=== PATIENT | male | born 1990 | race Caucasian/White ===

== ENCOUNTER 2019-01-19 06:58 | Emergency (ER) | payer BC, SELFPAY ==
[2019-01-19] MEDS ORDERED: ONDANSETRON 4 MG/2 ML VIAL ONE (07:28)
[2019-01-19] MEDS ORDERED: NA CHLORIDE 0.9% 1,000 ML ONE (07:29)
[2019-01-19 07:43] LABS: Absolute Lymphocytes (CBC) 0.2 K/uL (0.7-4.9); Absolute Monocytes 0.3 K/uL (0.1-1.3); Absolute Neutrophil 5.9 K/uL (1.8-8.0); Basophils % 0.1 % (0-1.3); Eosinophils % 0.3 % (0-4.4); Hematocrit 48.8 % (39.6-49.0); Lymphocytes % 3.4 % (15.3-44.8); Monocytes % 4.2 % (3.3-12.3); RBC Red Blood Cell Count 5.45 M/uL (4.33-5.43)
[2019-01-19 07:53] LABS: ALT/SGPT 44 U/L (12-78); AST/SGOT 24 U/L (15-37); Albumin 4.2 g/dL (3.4-5.0); Alkaline Phosphatase 71 U/L (45-117); BUN Blood Urea Nitrogen 17 mg/dL (7-18); Bicarbonate 28 mmol/L (21-32); Bilirubin Direct 0.2 mg/dL (0-0.2); Bilirubin Total 0.7 mg/dL (0.2-1.0); Glucose Level 120 mg/dL (74-106); Lipase 126 U/L (73-393); Potassium 3.6 mmol/L (3.5-5.1); Protein, Total 7.8 g/dL (6.4-8.2); Sodium Level 142 mmol/L (136-145)
--- NOTE | 2019-01-19 08:33 | EDPHYS ---
Physician Documentation [facility] Name: Larry Christensen Age: 28 yrs Sex: Male : 1990 Arrival Date: 01/19/2019 Time: 07:00 Bed 6 Private MD: ED Physician Joel Baugh HPI: 01/19 07:13 This 28 yrs old Male presents to ER via Ambulatory with complaints of kb Vomiting. 07:13 The patient presents to the emergency department with nausea, vomiting, diarrhea. kb Onset: The symptoms/episode began/occurred last night. Possible causes: bad food exposure, shrimp. The symptoms are aggravated by nothing. The symptoms are alleviated by nothing. Associated signs and symptoms: Pertinent positives: diarrhea, nausea, vomiting. Severity of symptoms: At their worst the symptoms were moderate in the emergency department the symptoms are unchanged. The patient has not experienced similar symptoms in the past. The patient has not recently seen a physician. 07:16 Pt reports vomiting started at 2000 last night and diarrhea started this morning. kb States he had shrimp prior to symptoms so he believes that is the cause. denies fever, abd pain, sick contacts. Historical: - Allergies: 07:07 No Known Allergies; aa5 - Home Meds: 07:07 None [Active]; aa5 - PMHx: 07:07 None; aa5 - PSHx: 07:07 None; aa5 - Immunization history:: Flu vaccine is up to date. - Social history:: Smoking status: Patient/guardian denies using tobacco. - Ebola Screening: : No symptoms or risks identified at this time. ROS: 07:13 Constitutional: Negative for fever, chills, and weight loss, Cardiovascular: Negative kb for chest pain, palpitations, and edema, Respiratory: Negative for shortness of breath, cough, wheezing, and pleuritic chest pain, Back: Negative for injury and pain, : Negative for injury, bleeding, discharge, and swelling, MS/Extremity: Negative for injury and deformity, Skin: Negative for injury, rash, and discoloration, Neuro: Negative for headache, weakness, numbness, tingling, and seizure. 07:13 Abdomen/GI: Positive for nausea, vomiting, and diarrhea, Negative for abdominal pain, abdominal cramps, abdominal distension, anorexia. Exam: 07:13 Constitutional: This is a well developed, well nourished patient who is awake, alert, kb and in no acute distress. Head/Face: Normocephalic, atraumatic. ENT: Nares patent. No nasal discharge, no septal abnormalities noted. Tympanic membranes are normal and external auditory canals are clear. Oropharynx with no redness, swelling, or masses, exudates, or evidence of obstruction, uvula midline. Mucous membranes moist. Neck: Trachea midline, no thyromegaly or masses palpated, and no cervical lymphadenopathy. Supple, full range of motion without nuchal rigidity, or vertebral point tenderness. No Meningismus. Chest/axilla: Normal chest wall appearance and motion. Nontender with no deformity. No lesions are appreciated. Cardiovascular: Regular rate and rhythm with a normal S1 and S2. No gallops, murmurs, or rubs. Normal PMI, no JVD. No pulse deficits. Respiratory: Lungs have equal breath sounds bilaterally, clear to auscultation and percussion. No rales, rhonchi or wheezes noted. No increased work of breathing, no retractions or nasal flaring. Abdomen/GI: Soft, non-tender, with normal bowel sounds. No distension or tympany. No guarding or rebound. No evidence of tenderness throughout. Back: No spinal tenderness. No costovertebral tenderness. Full range of motion. Skin: Warm, dry with normal turgor. Normal color with no rashes, no lesions, and no evidence of cellulitis. MS/ Extremity: Pulses equal, no cyanosis. Neurovascular intact. Full, normal range of motion. Neuro: Awake and alert, GCS 15, oriented to person, place, time, and situation. Cranial nerves II-XII grossly intact. Motor strength 5/5 in all extremities. Sensory grossly intact. Cerebellar exam normal. Normal gait. Vital Signs: 07:07 BP 109 / 61; Pulse 106; Resp 16 S; Temp 99.4(TE); Pulse Ox 95% on R/A; Weight 88.45 kg aa5 (R); Height 5 ft. 11 in. (180.34 cm) (R); Pain 0/10; 08:13 BP 107 / 59; Pulse 90; Resp 18; Pulse Ox 97% on R/A; hj 07:07 Body Mass Index 27.20 (88.45 kg, 180.34 cm) aa5 MDM: 07:08 Patient medically screened. [facility] 07:12 Data reviewed: vital signs, nurses notes. Data interpreted: Pulse oximetry: on room air kb is 95 %. Interpretation: normal. 08:11 Counseling: I had a detailed discussion with the patient and/or guardian regarding: the kb historical points, exam findings, and any diagnostic results supporting the discharge/admit diagnosis, lab results, the need for outpatient follow up, a family practitioner, to return to the emergency department if symptoms worsen or persist or if there are any questions or concerns that arise at home. 01/19 07:12 Order name: Basic Metabolic Panel; Complete Time: 07:53 kb 01/19 07:12 Order name: CBC with Diff kb 01/19 07:12 Order name: Hepatic Function; Complete Time: 07:53 kb 01/19 07:12 Order name: Lipase; Complete Time: 07:53 kb 01/19 07:12 Order name: IV Saline Lock; Complete Time: 07:24 kb 01/19 07:12 Order name: Labs collected and sent; Complete Time: 07:24 kb 01/19 08:09 Order name: PO challenge; Complete Time: 08:10 kb Administered Medications: 07:24 Drug: NS 0.9% 1000 ml Route: IV; Rate: 1000 ml; Site: right forearm; 07:58 Follow up: IV Status: Completed infusion hj 07:24 Drug: Zofran 4 mg Route: IVP; Site: right forearm; 07:58 Follow up: Response: No adverse reaction Disposition: 01/19/19 08:33 Discharged to Home. Impression: Noninfective gastroenteritis and colitis, unspecified. - Condition is Stable. - Discharge Instructions: Food Choices to Help Relieve Diarrhea, Adult, Viral Gastroenteritis, Adult, [id number]. - Prescriptions for Zofran 4 mg Oral Tablet - take 1 tablet by ORAL route every 6 hours As needed; 20 tablet. - Medication Reconciliation Form, Thank You Letter, Antibiotic Education, Prescription Opioid Use, Work release form form. - Follow up: Emergency Department; When: As needed; Reason: Worsening of condition. Follow up: Private Physician; When: 2 - 3 days; Reason: Recheck today's complaints, Continuance of care, Re-evaluation by your physician. Addendum: 01/21/2019 11:18 Co-signature as Attending Physician, Joel Baugh MD I agree with the assessment and c doyle plan of care. Signatures: Dispatcher [employer] EDMarva Garcia, JUNIOR MEDIA BUYER-C JUNIOR MEDIA BUYER-Ckb Joel Baugh MD MD cha Calderon, Audri, RN RN aa5 Tao Barriga, RN RN hj Corrections: (The following items were deleted from the chart) 01/19 08:51 08:33 01/19/2019 08:33 Discharged to Home. Impression: Noninfective gastroenteritis and hj colitis, unspecified. Condition is Stable. Discharge Instructions: Food Choices to Help Relieve Diarrhea, Adult, Viral Gastroenteritis, Adult, [id number]. Prescriptions for Zofran 4 mg Oral Tablet - take 1 tablet by ORAL route every 6 hours As needed; 20 tablet. and Forms are Medication Reconciliation Form, Thank You Letter, Antibiotic Education, Prescription Opioid Use. Follow up: Emergency Department; When: As needed; Reason: Worsening of condition. Follow up: Private Physician; When: 2 - 3 days; Reason: Recheck today's complaints, Continuance of care, Re-evaluation by your physician. kb
--- NOTE | 2019-01-19 08:33 | ER ---
Nurse's Notes [facility] Name: Larry Christensen Age: 28 yrs Sex: Male : 1990 Arrival Date: 01/19/2019 Time: 07:00 Bed 6 Private MD: Diagnosis: Noninfective gastroenteritis and colitis, unspecified Presentation: 01/19 07:06 Presenting complaint: Patient states: vomiting since last night around 1999 and aa5 diarrhea today. Pt reports abd "discomfort". Transition of care: patient was not received from another setting of care. Onset of symptoms was January 2019. Risk Assessment: Do you want to hurt yourself or someone else? Patient reports no desire to harm self or others. Initial Sepsis Screen: Does the patient meet any 2 criteria? No. Patient's initial sepsis screen is negative. Does the patient have a suspected source of infection? No. Patient's initial sepsis screen is negative. Care prior to arrival: None. 07:06 Method Of Arrival: Ambulatory aa5 07:06 Acuity: HUMBERTO 3 aa5 Triage Assessment: 07:11 General: Appears in no apparent distress. uncomfortable, Behavior is calm, cooperative, hj appropriate for age. Pain: Denies pain. EENT: No signs and/or symptoms were reported regarding the EENT system. Neuro: Level of Consciousness is awake, alert, obeys commands, Oriented to person, place, time, situation, Appropriate for age. Cardiovascular: Capillary refill < 3 seconds Patient's skin is warm and dry. Respiratory: Airway is patent Respiratory effort is even, unlabored, Respiratory pattern is regular, symmetrical. GI: Reports vomiting. : No signs and/or symptoms were reported regarding the genitourinary system. Derm: No signs and/or symptoms reported regarding the dermatologic system. Musculoskeletal: No signs and/or symptoms reported regarding the musculoskeletal system. Historical: - Allergies: 07:07 No Known Allergies; aa5 - Home Meds: 07:07 None [Active]; aa5 - PMHx: 07:07 None; aa5 - PSHx: 07:07 None; aa5 - Immunization history:: Flu vaccine is up to date. - Social history:: Smoking status: Patient/guardian denies using tobacco. - Ebola Screening: : No symptoms or risks identified at this time. Screenin:11 Abuse screen: Denies threats or abuse. Denies injuries from another. Nutritional hj screening: No deficits noted. Tuberculosis screening: No symptoms or risk factors identified. Fall Risk None identified. Assessment: 07:14 Reassessment: see triage for assessment;. hj 08:11 Reassessment: Patient and/or family updated on plan of care and expected duration. Pain hj level reassessed. Patient is alert, oriented x 3, equal unlabored respirations, skin warm/dry/pink. able to tolerate PO intake; denies nausea;. Vital Signs: 07:07 BP 109 / 61; Pulse 106; Resp 16 S; Temp 99.4(TE); Pulse Ox 95% on R/A; Weight 88.45 kg aa5 (R); Height 5 ft. 11 in. (180.34 cm) (R); Pain 0/10; 08:13 BP 107 / 59; Pulse 90; Resp 18; Pulse Ox 97% on R/A; hj 07:07 Body Mass Index 27.20 (88.45 kg, 180.34 cm) aa5 ED Course: 07:00 Patient arrived in ED. ds1 07:00 Marva Loaiza FNP-C is PHCP. kb 07:00 Joel Baugh MD is Attending Physician. kb 07:06 Triage completed. aa5 07:06 Arm band placed on. aa5 07:08 Tao Barriga, HU is Primary Nurse. hj 07:13 Patient has correct armband on for positive identification. Placed in gown. Bed in low hj position. Call light in reach. Side rails up X 1. Adult w/ patient. 07:20 Initial lab(s) drawn, by me, sent to lab. Inserted saline lock: 20 gauge in right hj forearm, using aseptic technique. ,using aseptic technique. PC, SN. 07:25 Basic Metabolic Panel Sent. hj 07:25 CBC with Diff Sent. hj 07:25 Hepatic Function Sent. hj 07:25 Lipase Sent. hj 08:50 No provider procedures requiring assistance completed. IV discontinued, intact, hj bleeding controlled, No redness/swelling at site. Pressure dressing applied. Administered Medications: 07:24 Drug: NS 0.9% 1000 ml Route: IV; Rate: 1000 ml; Site: right forearm; hj 07:58 Follow up: IV Status: Completed infusion hj 07:24 Drug: Zofran 4 mg Route: IVP; Site: right forearm; 07:58 Follow up: Response: No adverse reaction hj Outcome: 08:33 Discharge ordered by MD. mcduffie 08:50 Attestation : i agree with the assessment and notes of SN Jeannie. hj 08:50 Discharged to home ambulatory, with family. 08:50 Condition: stable 08:50 Discharge instructions given to patient, family, Instructed on discharge instructions, follow up and referral plans. medication usage, Demonstrated understanding of instructions, follow-up care, medications, Prescriptions given X 1. 08:51 Patient left the ED. Signatures: Marva Loaiza, DIGITAL CONTENT MANAGER-C DIGITAL CONTENT MANAGER-Hermelinda Max ds1 Tessa Orozco, RN RN aa5 Tao Barriga, RN RN hj Corrections: (The following items were deleted from the chart) 07:55 07:54 Reassessment: 2nd set of trop sent; reyna orellana
[2019-01-19 12:56] LABS: Blood Morphology Comment NOT SEEN (NOT SEEN); Platelet Estimate ADEQ; Urine White Blood Cell Casts OK
== END 2019-01-19 08:51 | disposition home or self-care (01) ==
LOC: ER 06:58
DX: K52.9 Noninfective gastroenteritis and colitis, unspecified (principal)
CPT/HCPCS: 36415; 80048; 80076; 83690; 85025; 96361; 96374; 99284; J2405; J7030

== ENCOUNTER 2019-02-20 20:15 | Emergency (ER) | payer SELFPAY ==
[2019-02-20] MEDS ORDERED: LIDOCAINE 1% MPF 5 ML VIAL ONE (20:51)
--- NOTE | 2019-02-20 21:02 | RAD REPORT ---
EXAM DESCRIPTION: RAD - Knee Right 3 View - 02/20/2019 8:41 pm CLINICAL HISTORY: Knee pain, knee trauma, laceration anterior knee COMPARISON: None. FINDINGS: No fracture, dislocation or periosteal reaction.No joint effusion seen. No joint space anna rowing. No foreign body or other soft tissue abnormality. IMPRESSION: No acute bone or joint finding. No foreign body.
--- NOTE | 2019-02-20 21:10 | EDPHYS ---
Physician Documentation [facility] Name: Larry Christensen Age: 28 yrs Sex: Male : 1990 Arrival Date: 02/20/2019 Time: 20:21 Bed 5 Private MD: Lake Saavedra M ED Physician Bertram Sethi HPI: 02/20 21:01 This 28 yrs old Male presents to ER via Wheelchair with complaints of pkl Laceration To Leg. 21:01 The patient has a laceration The injury was hit right leg against metal piece. The pkl laceration(s) is(are) located on the right leg. Onset: The symptoms/episode began/occurred just prior to arrival. Historical: - Allergies: 20:33 No Known Allergies; fc - Home Meds: 20:33 None [Active]; fc - PMHx: 20:33 None; fc - PSHx: 20:33 None; fc - Immunization history:: Last tetanus immunization: unknown, Flu vaccine is up to date. - Social history:: Smoking status: Patient/guardian denies using tobacco, Patient/guardian denies using alcohol, street drugs. - Ebola Screening: : Patient negative for fever greater than or equal to 101.5 degrees Fahrenheit, and additional compatible Ebola Virus Disease symptoms Patient denies exposure to infectious person Patient denies travel to an Ebola-affected area in the 21 days before illness onset. ROS: 21:01 Eyes: Negative for injury, pain, redness, and discharge, ENT: Negative for injury, pkl pain, and discharge, Neck: Negative for injury, pain, and swelling, Cardiovascular: Negative for chest pain, palpitations, and edema, Respiratory: Negative for shortness of breath, cough, wheezing, and pleuritic chest pain, Abdomen/GI: Negative for abdominal pain, nausea, vomiting, diarrhea, and constipation, Back: Negative for injury and pain, : Negative for injury, bleeding, discharge, and swelling. 21:01 MS/extremity: Positive for laceration, of the right leg just below knee. 21:01 Skin: Negative for rash. 21:01 Neuro: Negative for altered mental status. Exam: 21:01 Head/Face: Normocephalic, atraumatic. Eyes: Pupils equal round and reactive to light, pkl extra-ocular motions intact. Lids and lashes normal. Conjunctiva and sclera are non-icteric and not injected. Cornea within normal limits. Periorbital areas with no swelling, redness, or edema. ENT: Nares patent. No nasal discharge, no septal abnormalities noted. Tympanic membranes are normal and external auditory canals are clear. Oropharynx with no redness, swelling, or masses, exudates, or evidence of obstruction, uvula midline. Mucous membranes moist. Neck: Trachea midline, no thyromegaly or masses palpated, and no cervical lymphadenopathy. Supple, full range of motion without nuchal rigidity, or vertebral point tenderness. No Meningismus. Chest/axilla: Normal chest wall appearance and motion. Nontender with no deformity. No lesions are appreciated. Cardiovascular: Regular rate and rhythm with a normal S1 and S2. No gallops, murmurs, or rubs. Normal PMI, no JVD. No pulse deficits. Respiratory: Lungs have equal breath sounds bilaterally, clear to auscultation and percussion. No rales, rhonchi or wheezes noted. No increased work of breathing, no retractions or nasal flaring. Abdomen/GI: Soft, non-tender, with normal bowel sounds. No distension or tympany. No guarding or rebound. No evidence of tenderness throughout. Back: No spinal tenderness. No costovertebral tenderness. Full range of motion. Neuro: Awake and alert, GCS 15, oriented to person, place, time, and situation. Cranial nerves II-XII grossly intact. Motor strength 5/5 in all extremities. Sensory grossly intact. Cerebellar exam normal. Normal gait. 21:01 Musculoskeletal/extremity: Extremities: grossly normal except: noted in the right leg juet below knee: laceration. Vital Signs: 20:20 BP 126 / 77; Pulse 70; Resp 18; Temp 98.8(O); Pulse Ox 99% on R/A; Weight 88 kg (R); fc Height 6 ft. 0 in. (182.88 cm) (R); Pain 2/10; 20:46 BP 122 / 70; Pulse 75; Resp 17; Pulse Ox 99% on R/A; rr5 21:35 BP 118 / 76; Pulse 77; Resp 17; Pulse Ox 99% on R/A; rr5 20:20 Body Mass Index 26.31 (88.00 kg, 182.88 cm) fc Laceration: 21:01 Wound Repair of 3cm ( 1.2in ) subcutaneous laceration to right leg. Irregularly pkl shaped.. Minimal bleeding noted.. Distal neuro/vascular/tendon intact. Anesthesia: Local anesthetic administered with 3 mls of 1% lidocaine. Wound prep: Extensive cleansing, Wound irrigation with saline by fl. Skin closed with 4 4-0 Prolene using simple sutures and sterile technique. Dressed with 4x4's, Matt bandage. Patient tolerated well. MDM: 20:33 Patient medically screened. pkl 21:01 Data reviewed: vital signs, nurses notes, radiologic studies, plain films. pkl 02/20 20:29 Order name: Knee Right 3 View XRAY; Complete Time: 21:12 02/20 21:01 Order name: Matt Wrap; Complete Time: 21:13 pkl Administered Medications: 20:45 Drug: Lidocaine (1 %) 5 ml Volume: 5 ml; Route: Infiltration; rr5 21:36 Follow up: Response: No adverse reaction; medication given by dr. sethi rr5 21:11 Drug: Tetanus-Diphtheria Toxoid Adult 0.5 ml {Pension Adviser: Answer.To. Exp: rr5 08/06/2020. Lot #: [id number]. } Route: IM; Site: right deltoid; 21:36 Follow up: Response: No adverse reaction rr5 21:11 Drug: KeFLEX 500 mg Route: PO; rr5 21:36 Follow up: Response: No adverse reaction rr5 Disposition: 02/20/19 21:10 Discharged to Home. Impression: Laceration right leg. - Condition is Stable. - Prescriptions for Keflex 500 mg Oral Capsule - take 1 capsule by ORAL route every 8 hours for 7 days; 21 capsule. - Work release form, Medication Reconciliation Form, Thank You Letter, Antibiotic Education, Prescription Opioid Use form. - Follow up: Lake Saavedra MD; When: 1 week; Reason: Staple/Suture removal, Re-evaluation by your physician. Signatures: Dispatcher [employer] Bertram Branch MD MD pkMeghna Horta RN RN Prabhu Marie RN RN rr5 Corrections: (The following items were deleted from the chart) 21:37 21:10 02/20/2019 21:10 Discharged to Home. Impression: Laceration right leg. Condition rr5 is Stable. Forms are Medication Reconciliation Form, Thank You Letter, Antibiotic Education, Prescription Opioid Use. Follow up: Lake Saavedra; When: 1 week; Reason: Staple/Suture removal, Re-evaluation by your physician. pkl
--- NOTE | 2019-02-20 21:10 | ER ---
Nurse's Notes [facility] Name: Larry Christensen Age: 28 yrs Sex: Male : 1990 Arrival Date: 02/20/2019 Time: 20:21 Bed 5 Private MD: Lake Saavedra M Diagnosis: Laceration right leg Presentation: 02/20 20:20 Presenting complaint: Patient states: that he was at work and slipped through the railing. Laceration noted below right knee along with knee pain. States that it was cut on a piece of metal. Transition of care: patient was not received from another setting of care. Complicating Factors: There are no complicating factors for this patient. Onset of symptoms was February 20, 2019 at 20:00. Risk Assessment: Do you want to hurt yourself or someone else? Patient reports no desire to harm self or others. Initial Sepsis Screen: Does the patient meet any 2 criteria? No. Patient's initial sepsis screen is negative. Does the patient have a suspected source of infection? No. Patient's initial sepsis screen is negative. Care prior to arrival: Bleeding of injury controlled. Injury dressed. 20:20 Method Of Arrival: Wheelchair fc 20:20 Acuity: HUMBERTO 4 fc Triage Assessment: 20:20 General: Appears comfortable, slender, well groomed, Behavior is calm, cooperative, fc appropriate for age. Pain: Complains of pain in right knee Pain currently is 2 out of 10 on a pain scale. Quality of pain is described as aching, dull, Pain began 30 min ago. Is continuous, Aggravated by increased activity, repositioning, weight bearing. EENT: No deficits noted. Neuro: Level of Consciousness is awake, alert, obeys commands, Oriented to person, place, time, situation, Appropriate for age. Cardiovascular: No deficits noted. Respiratory: No deficits noted. GI: No deficits noted. : No deficits noted. Derm: Skin is pink, warm \T\ dry. Musculoskeletal: Circulation, motion, and sensation intact. Capillary refill < 3 seconds, Range of motion: intact in all extremities, Reports pain in right knee. Injury Description: Laceration sustained to left knee is clean, 0.5 to 2.5 cm long, not bleeding, was sustained less than 30 minutes ago. is bleeding a small amount a dressing was applied. Historical: - Allergies: 20:33 No Known Allergies; fc - Home Meds: 20:33 None [Active]; fc - PMHx: 20:33 None; fc - PSHx: 20:33 None; fc - Immunization history:: Last tetanus immunization: unknown, Flu vaccine is up to date. - Social history:: Smoking status: Patient/guardian denies using tobacco, Patient/guardian denies using alcohol, street drugs. - Ebola Screening: : Patient negative for fever greater than or equal to 101.5 degrees Fahrenheit, and additional compatible Ebola Virus Disease symptoms Patient denies exposure to infectious person Patient denies travel to an Ebola-affected area in the 21 days before illness onset. Screenin:20 Abuse screen: Denies threats or abuse. Nutritional screening: No deficits noted. fc Tuberculosis screening: No symptoms or risk factors identified. Fall Risk None identified. Assessment: 20:44 General: Appears in no apparent distress. comfortable, Behavior is calm, cooperative, rr5 appropriate for age. Pain: Complains of pain in below knee Pain does not radiate. Pain currently is 2 out of 10 on a pain scale. Quality of pain is described as aching, Pain began suddenly, Is intermittent. Neuro: Level of Consciousness is awake, alert, obeys commands, Oriented to person, place, time, situation, Appropriate for age. Cardiovascular: Capillary refill < 3 seconds Patient's skin is warm and dry. Respiratory: Airway is patent Respiratory effort is even, unlabored, Respiratory pattern is regular, symmetrical. GI: No signs and/or symptoms were reported involving the gastrointestinal system. : No signs and/or symptoms were reported regarding the genitourinary system. EENT: No signs and/or symptoms were reported regarding the EENT system. Derm: Wound noted below knee Wound is lacerated wound. Musculoskeletal: No signs and/or symptoms reported regarding the musculoskeletal system. Injury Description: Laceration sustained to below right knee is clean, is bleeding a small amount. 21:34 Reassessment: Patient appears in no apparent distress at this time. Patient is alert, rr5 oriented x 3, equal unlabored respirations, skin warm/dry/pink. discharge instruction given and explained without complaints made. Patient states feeling better. Patient states symptoms have improved. Vital Signs: 20:20 BP 126 / 77; Pulse 70; Resp 18; Temp 98.8(O); Pulse Ox 99% on R/A; Weight 88 kg (R); fc Height 6 ft. 0 in. (182.88 cm) (R); Pain 2/10; 20:46 BP 122 / 70; Pulse 75; Resp 17; Pulse Ox 99% on R/A; rr5 21:35 BP 118 / 76; Pulse 77; Resp 17; Pulse Ox 99% on R/A; rr5 20:20 Body Mass Index 26.31 (88.00 kg, 182.88 cm) ED Course: 20:20 Arm band placed on Patient placed in an exam room, on a stretcher. fc 20:20 Patient has correct armband on for positive identification. Bed in low position. Call fc light in reach. Pulse ox on. NIBP on. 20:21 Patient arrived in ED. es 20:21 Lake Saavedra MD is Private Physician. es 20:31 Triage completed. fc 20:33 Bertram Sethi MD is Attending Physician. pkl 20:34 Prabhu Marie RN is Primary Nurse. rr5 20:38 Knee Right 3 View XRAY In Process Unspecified. EDMS 20:39 X-ray completed. Portable x-ray completed in exam room. mh1 20:45 Assist provider with laceration repair on below right knee that was 2.5 cm. or less rr5 using sutures. Set up tray. Performed by Bertram Sethi MD Dressed with 4X4s, rebecca wrap Patient tolerated well. 21:09 Lake Saavedra MD is Referral Physician. pkl 21:14 Patient did not have IV access during this emergency room visit. rr5 Administered Medications: 20:45 Drug: Lidocaine (1 %) 5 ml Volume: 5 ml; Route: Infiltration; rr5 21:36 Follow up: Response: No adverse reaction; medication given by dr. sethi rr5 21:11 Drug: Tetanus-Diphtheria Toxoid Adult 0.5 ml {Dress Draper: rumr: turn off the lights. Exp: rr5 08/06/2020. Lot #: [id number]. } Route: IM; Site: right deltoid; 21:36 Follow up: Response: No adverse reaction rr5 21:11 Drug: KeFLEX 500 mg Route: PO; rr5 21:36 Follow up: Response: No adverse reaction rr5 Intake: Outcome: 21:10 Discharge ordered by . pkl 21:35 Discharged to home ambulatory, with family. rr5 21:35 Condition: stable 21:35 Discharge instructions given to patient, Instructed on discharge instructions, follow up and referral plans. medication usage, Demonstrated understanding of instructions, follow-up care, medications, Prescriptions given X 1. 21:37 Patient left the ED. rr5 Signatures: Dispatcher [employer] Bertram Branch MD MD pkAlison Medrano Martha [facility] Meghna Balderrama RN RN Prabhu Torres RN RN rr5
[2019-02-20] MEDS ORDERED: CEPHALEXIN 250 MG CAP ONE (21:18)
[2019-02-20] MEDS ORDERED: TETANUS & DIPHTHERIA TOX,ADULT 0.5 ML VIAL ONE (21:18)
== END 2019-02-20 21:37 | disposition home or self-care (01) ==
LOC: ER 20:15
PROC: 0JQN0ZZ Repair Right Lower Leg Subcutaneous Tissue and Fascia, Open Approach (ICD-10-PCS; principal; 2019-02-20)
DX: S81.811A Laceration without foreign body, right lower leg, initial encounter (principal); W22.8XXA Striking against or struck by other objects, initial encounter; Z23 Encounter for immunization
CPT/HCPCS: 90714; 99284